=== PATIENT | male | born 1960 | race Caucasian/White ===

== ENCOUNTER 2018-02-27 17:25 | Emergency (ER) | payer BC ==
[~2018-02-27] VITALS: Ht 188 cm; Wt 108.9 kg
[2018-02-27 18:47] VITALS: BP 180/80
== END 2018-02-27 18:50 | disposition home or self-care (01) ==
LOC: FSED 17:25
DX: R31.9 Hematuria, unspecified (principal); N39.0 Urinary tract infection, site not specified
CPT/HCPCS: 81003; 99282